=== PATIENT | male | born 1970 | race Two or more races ===

== ENCOUNTER 2018-05-08 23:00 | Inpatient (IN) | payer SELFPAY ==
[~2018-05-08] VITALS: Ht 170.2 cm; Wt 87.2 kg
[2018-05-08 23:30] LABS: Basophils # (auto) 0 uL; Basophils % (auto) 0.2 % (0.0-2.0); Eosinophils # (auto) 0 uL; Eosinophils % (auto) 0.1 % (0.0-7.0); Hematocrit 41.9 % (41.0-53.0); Hemoglobin 14.6 g/dL (13.5-17.5); Lymphocytes # (auto) 0.5 uL; Lymphocytes % (auto) 4.8 % (10.0-50.0); Mean Corpuscular Hemoglobin 29.2 pg (28.0-32.0); Mean Corpuscular Hgb Conc. 34.7 g/dL (32.0-36.0); Mean Corpuscular Volume 84.1 fL (80.0-100.0); Monocytes # (auto) 0.4 uL; Monocytes % (auto) 4.6 % (0.0-12.0); Neutrophils # (auto) 8.6 uL; Neutrophils % (auto) 90.3 % (37.0-80.0); Nucleated Red Blood Cells % 0.1 %; Platelet Count (auto) 153 10^3/uL (140-450); Red Blood Cells 4.98 10^6/uL (4.5-5.90); White Blood Cell 9.6 10^3/uL (4.4-10.8)
[2018-05-08] MEDS ORDERED: ACETAMINOPHEN 500 MG TAB PO ONE (23:30)
[2018-05-08] MEDS ORDERED: SODIUM CHLORIDE 0.9% 1,000 ML IV ONE (23:30)
[2018-05-08] MEDS ORDERED: ONDANSETRON HCL 4 MG/2 ML VIAL IV ONE ×2 (23:30→23:45)
[2018-05-08 23:45] LABS: INR 1.03 (0.9-1.15); Partial Thromboplastin Time 25.9 sec (23.78-33.04)
[2018-05-08] MEDS ORDERED: AZITHROMYCIN 500MG/ 250ML 250 ML IV ONE (23:45)
[2018-05-08 23:47] LABS: Anion Gap 10 (5-15); Calcium 8.1 mg/dL (8.5-10.1); Carbon Dioxide 21 mmol/L (21-32); Chloride 109 mmol/L (98-107); Glucose 167 mg/dL (74-106); Magnesium 1.8 mg/dL (1.6-2.6); Potassium 3.5 mmol/L (3.5-5.1); Sodium 140 mmol/L (136-145)
[2018-05-08 23:50] LABS: Amylase 22 U/L (25-115); Lipase 115 U/L (73-393)
[2018-05-08 23:52] LABS: Alkaline Phosphatase 139 U/L (45-117); Aspartate Aminotransferase 40 U/L (15-37); BUN/Creatinine Ratio 12.8; Bilirubin, Total 2.4 mg/dL (0.2-1.0); Blood Urea Nitrogen 17 mg/dL (7-18); GFR African American 74 mL/min; GFR Non-African American 61 mL/min; Total Protein 6.8 g/dL (6.4-8.2)
[2018-05-09] LABS: Alanine Aminotransferase 56 U/L (16-61)
[2018-05-09 00:07] LABS: Lactic Acid w/Reflex 3.3 mmol/L (0.4-2.0)
[2018-05-09 00:38] LABS: Urine Bacteria MANY /hpf (None Seen); Urine Blood 2+ /uL (Negative); Urine Mucus FEW (None Seen); Urine Specific Gravity 1.015 (1.001-1.035); Urine WBC 790 /hpf (0 - 3); Urine WBC Clumps PRESENT /hpf (None Seen)
[2018-05-09] MEDS ORDERED: SODIUM CHLORIDE 0.9% 1,000 ML IV ONE ×2 (02:00→05:00)
[2018-05-09] MEDS ORDERED: LORazepam 2MG/ML-1ML VIAL IV ONE (05:00)
[2018-05-09] MEDS ORDERED: cefTRIAXone 1GM/50ML D5W 50 ML IV ONE (05:00)
[2018-05-09] MEDS ORDERED: HYDROcodone-ACET 5/325MG TAB PO PRN (05:15)
[2018-05-09] MEDS ORDERED: ONDANSETRON HCL 4 MG/2 ML VIAL IV PRN (05:15)
[2018-05-09 05:40] LABS: Alcohol, Urine < 3.0 mg/dL (0-5); Amphetamine Screen, Urine NEGATIVE (NEGATIVE); Barbiturate Scree,Urine NEGATIVE (NEGATIVE); Benzodiazephine Screen, Urine NEGATIVE (NEGATIVE); Cannabinoid Screen, Urine NEGATIVE (NEGATIVE); Cocaine Screen, Urine NEGATIVE (NEGATIVE); Opiate Scree,Urine NEGATIVE (NEGATIVE); Phencyclidine Screen, Urine NEGATIVE (NEGATIVE)
[2018-05-09] MEDS ORDERED: IBUPROFEN 600 MG TAB PO ONE (05:45)
[2018-05-09] MEDS ORDERED: VANCOMYCIN PER PHARMACY 0 MG IV SCH (05:45)
[2018-05-09] MEDS: SODIUM CHLORIDE 0.9% 1,000 ML IV SCH ×2 (06:27→15:15)
[2018-05-09 06:40] VITALS: BP 99/65
[2018-05-09] MEDS ORDERED: VANCOMYCIN 1GM/250ML 250 ML IV ONE (07:00)
[2018-05-09 10:35] VITALS: BP 99/65
[2018-05-09] MEDS ORDERED: DEXTROSE (50%) 50ML SYRG IV PRN (12:15)
[2018-05-09 13:21] VITALS: BP 100/69
[2018-05-09] MEDS: ACCU-CHEK COMFORT CURVE STRIP VI SCH ×2 (17:00→21:13)
[2018-05-09] MEDS: InsuLIN REG 1unit/0.01ml Soln (100units/ml) SC SCH ×2 (17:00→21:13)
[2018-05-09 17:22] VITALS: BP 112/71
[2018-05-09] MEDS: Glucerna Carbsteady SHAKE Vanilla 8oz PO SCH (18:00)
[2018-05-09] MEDS: VANCOMYCIN 1GM/250ML 250 ML IV SCH (19:00)
[2018-05-09] MEDS: ACETAMINOPHEN 500 MG TAB PO PRN (21:14)
[2018-05-09 22:00] VITALS: BP 124/75
[2018-05-10] MEDS: SODIUM CHLORIDE 0.9% 1,000 ML IV SCH ×3 (02:08→22:50)
[2018-05-10] MEDS: ACETAMINOPHEN 500 MG TAB PO PRN ×3 (03:37→19:15)
[2018-05-10 05:00] VITALS: BP 123/70
[2018-05-10] MEDS: cefTRIAXone 1GM/50ML D5W 50 ML IV SCH (05:04)
[2018-05-10 06:01] LABS: Basophils # (auto) 0 uL; Basophils % (auto) 0.3 % (0.0-2.0); Eosinophils # (auto) 0 uL; Eosinophils % (auto) 0.6 % (0.0-7.0); Hematocrit 37.6 % (41.0-53.0); Lymphocytes # (auto) 0.6 uL; Lymphocytes % (auto) 7.5 % (10.0-50.0); Mean Corpuscular Hemoglobin 29.1 pg (28.0-32.0); Mean Corpuscular Hgb Conc. 34.5 g/dL (32.0-36.0); Mean Corpuscular Volume 84.2 fL (80.0-100.0); Monocytes % (auto) 11.7 % (0.0-12.0); Neutrophils # (auto) 6.7 uL; Neutrophils % (auto) 79.9 % (37.0-80.0); Platelet Count (auto) 149 10^3/uL (140-450); Red Blood Cells 4.46 10^6/uL (4.5-5.90); Red Cell Distribution Width 14.4 % (11.8-14.3); White Blood Cell 8.4 10^3/uL (4.4-10.8)
[2018-05-10 06:13] LABS: BUN/Creatinine Ratio 14.3; Potassium 3.4 mmol/L (3.5-5.1)
[2018-05-10] MEDS: VANCOMYCIN 1GM/250ML 250 ML IV SCH ×2 (06:47→20:30)
[2018-05-10] MEDS: ACCU-CHEK COMFORT CURVE STRIP VI SCH ×4 (06:48→22:14)
[2018-05-10] MEDS: InsuLIN REG 1unit/0.01ml Soln (100units/ml) SC SCH ×4 (06:48→22:14)
[2018-05-10] MEDS: Glucerna Carbsteady SHAKE Vanilla 8oz PO SCH ×3 (08:00→18:00)
[2018-05-10 09:00] VITALS: BP 130/80
[2018-05-10] MEDS ORDERED: POTASSIUM CHLORIDE 8 MEQ TAB PO ONE (10:30)
[2018-05-10 13:00] VITALS: BP 146/90
[2018-05-10 17:00] VITALS: BP 119/77
[2018-05-10 22:00] VITALS: BP_SYST 114; BP_SYST 127; BP_DIAS 71; BP_DIAS 72
[2018-05-11] MEDS: ACETAMINOPHEN 500 MG TAB PO PRN (04:28)
[2018-05-11 05:00] VITALS: BP_SYST 106; BP_SYST 129; BP_DIAS 64; BP_DIAS 72
[2018-05-11] MEDS: cefTRIAXone 1GM/50ML D5W 50 ML IV SCH (05:44)
[2018-05-11] MEDS: VANCOMYCIN 1GM/250ML 250 ML IV SCH (06:22)
[2018-05-11] MEDS: ACCU-CHEK COMFORT CURVE STRIP VI SCH (06:22)
[2018-05-11 06:34] LABS: Calcium 8.1 mg/dL (8.5-10.1); Potassium 3.1 mmol/L (3.5-5.1)
[2018-05-11 06:37] LABS: BUN/Creatinine Ratio 11.9
[2018-05-11] MEDS: InsuLIN REG 1unit/0.01ml Soln (100units/ml) SC SCH (06:37)
[2018-05-11 06:43] LABS: Basophils # (auto) 0 uL; Basophils % (auto) 0.3 % (0.0-2.0); Eosinophils # (auto) 0 uL; Eosinophils % (auto) 0.2 % (0.0-7.0); Lymphocytes # (auto) 0.5 uL; Lymphocytes % (auto) 10.8 % (10.0-50.0); Mean Corpuscular Hemoglobin 28.6 pg (28.0-32.0); Mean Corpuscular Hgb Conc. 34.1 g/dL (32.0-36.0); Mean Corpuscular Volume 83.9 fL (80.0-100.0); Monocytes # (auto) 0.8 uL; Monocytes % (auto) 15.8 % (0.0-12.0); Neutrophils # (auto) 3.7 uL; Neutrophils % (auto) 72.9 % (37.0-80.0); Platelet Count (auto) 150 10^3/uL (140-450); Red Blood Cells 4.53 10^6/uL (4.5-5.90); Red Cell Distribution Width 14.3 % (11.8-14.3); White Blood Cell 5.1 10^3/uL (4.4-10.8)
[2018-05-11] MEDS: SODIUM CHLORIDE 0.9% 1,000 ML IV SCH ×2 (07:15→17:15)
[2018-05-11] MEDS: Glucerna Carbsteady SHAKE Vanilla 8oz PO SCH ×3 (08:00→18:00)
[2018-05-11 08:30] VITALS: BP 115/78
[2018-05-11] MEDS ORDERED: VANCOMYCIN 1GM/250ML 250 ML IV SCH ×2 (09:30→14:00)
[2018-05-11] MEDS ORDERED: MEROPENEM 1GM IVPB 100 ML IV SCH (10:00)
[2018-05-11 12:30] VITALS: BP 128/86
[2018-05-11] MEDS ORDERED: POTASSIUM EFFERVESENT TAB 25 MEQ PO ONE (16:15)
[2018-05-11 17:02] VITALS: BP 130/89
== END 2018-05-11 19:34 | disposition home or self-care (01) | DRG 872 ==
LOC: ER 23:00 → OVERFLOW 05-09 05:05 → CENTRAL 05-09 06:40
PROVIDERS: ADMIT Nurse Practitioner Family; ATTEND Internal Medicine
DX: A41.9 Sepsis, unspecified organism (principal); J98.11 Atelectasis; N10 Acute pyelonephritis; E44.0 Moderate protein-calorie malnutrition; E11.65 Type 2 diabetes mellitus with hyperglycemia; E11.21 Type 2 diabetes mellitus with diabetic nephropathy; N18.2 Chronic kidney disease, stage 2 (mild); B96.89 Other specified bacterial agents as the cause of diseases classified elsewhere; R16.2 Hepatomegaly with splenomegaly, not elsewhere classified; Z83.3 Family history of diabetes mellitus; Z68.30 Body mass index [BMI] 30.0-30.9, adult
CPT/HCPCS: 36415; 71046; 74176; 80048; 80053; 80202; 80307; 81001; 82150; 82962; 83036; 83605; 83690; 83735; 84484; 85025; 85610; 85730; 87040; 87077; 87086; 87088; 87186; 94761; 96361; 96365; 96366; 96375; 99291; G0378; J0696; J1815; J2185; J2405

== ENCOUNTER 2020-01-31 10:07 | Inpatient (IN) | payer MEDICAID, OTHER ==
[~2020-01-31] VITALS: Ht 175.3 cm; Wt 97.5 kg
[2020-01-31] MEDS ORDERED: SODIUM CHLORIDE 0.9% 1,000 ML IV ONE ×2 (10:08)
[2020-01-31] MEDS ORDERED: ACETAMINOPHEN 500 MG TAB PO ONE (10:15)
[2020-01-31] MEDS ORDERED: cefTRIAXone 1GM/50ML D5W 50 ML IV ONE (10:15)
[2020-01-31 10:46] LABS: Basophils # (auto) 0 10 ^3/uL (0-0.2); Basophils % (auto) 0.1 % (0.0-2.0); Eosinophils # (auto) 0 10 ^3/uL (0-0.8); Hematocrit 46.3 % (41.0-53.0); Hemoglobin 15.8 g/dL (13.5-17.5); Lymphocytes # (auto) 0.7 10 ^3/uL (0.4-5.4); Lymphocytes % (auto) 7.9 % (10.0-50.0); Mean Corpuscular Hemoglobin 28.3 pg (28.0-32.0); Mean Corpuscular Volume 83.3 fL (80.0-100.0); Monocytes # (auto) 0.6 10 ^3/uL (0-1.3); Monocytes % (auto) 6.7 % (0.0-12.0); Neutrophils # (auto) 7.3 10 ^3/uL (1.6-8.6); Neutrophils % (auto) 85.3 % (37.0-80.0); Nucleated Red Blood Cells % 0.6 %; Platelet Count (auto) 199 10^3/uL (140-450); Red Blood Cells 5.56 10^6/uL (4.5-5.90); Red Cell Distribution Width 14.1 % (11.8-14.3); White Blood Cell 8.5 10^3/uL (4.4-10.8)
[2020-01-31 11:13] LABS: Albumin 3.1 g/dL (3.4-5.0); Anion Gap 8 (5-15); Blood Urea Nitrogen 13 mg/dL (7-18); Calcium 8.6 mg/dL (8.5-10.1); Carbon Dioxide 22 mmol/L (21-32); Chloride 105 mmol/L (98-107); Glucose 226 mg/dL (74-106); Potassium 3.9 mmol/L (3.5-5.1); Sodium 135 mmol/L (136-145)
[2020-01-31 11:22] LABS: Alanine Aminotransferase 98 U/L (16-61); Alkaline Phosphatase 102 U/L (45-117); Aspartate Aminotransferase 47 U/L (15-37); BUN/Creatinine Ratio 12.7; Bilirubin, Total 0.6 mg/dL (0.2-1.0); CRP High Sensitivity 8.97 mg/dL (< 0.3); GFR African American 100 mL/min; GFR Non-African American 83 mL/min; Lactate Dehydrogenase 280 U/L (87-241); Total Protein 7.3 g/dL (6.4-8.2)
[2020-01-31] MEDS ORDERED: SODIUM CHLORIDE 0.9% 1,000 ML IV SCH (12:48)
[2020-01-31] MEDS ORDERED: NITROGLYCERIN 0.4 MG SL TAB SL PRN (13:00)
[2020-01-31] MEDS ORDERED: DOCUSATE SOD 100 MG CAP PO PRN (13:00)
[2020-01-31] MEDS ORDERED: HYDROcodone-ACET 5/325MG TAB PO PRN (13:00)
[2020-01-31] MEDS ORDERED: LORazepam 0.5 MG TAB PO PRN (13:00)
[2020-01-31] MEDS ORDERED: ALUM & MAG HYDROX-SIMETH LIQ(MAALOX) 30 ML PO PRN (13:00)
[2020-01-31] MEDS ORDERED: ONDANSETRON HCL 4 MG/2 ML VIAL IV PRN (13:00)
[2020-01-31] MEDS ORDERED: ACETAMINOPHEN 500 MG TAB PO PRN (13:00)
[2020-01-31] MEDS ORDERED: MORPHINE SULF INJ 2 MG/ML SYRINGE 1ML IV PRN ×2 (13:00)
[2020-01-31] MEDS ORDERED: ASCORBIC ACID 1,000 MG TAB PO ONE (13:15)
[2020-01-31] MEDS ORDERED: ENOXAPARIN SOD 40 MG/0.4 ML SYRINGE SC ONE (13:15)
[2020-01-31] MEDS ORDERED: DexAMETHasone SOD PHOS 10MG/1ML VIAL INJ IV ONE (13:15)
[2020-01-31] MEDS ORDERED: CHOLECALCIFEROL (VITD3) 2,000 UNIT CAP PO ONE (13:15)
[2020-01-31] MEDS ORDERED: ZINC SULFATE 220mg CAP or TAB PO ONE (13:15)
[2020-01-31 15:05] VITALS: BP 131/85
[2020-01-31 16:15] VITALS: BP 130/85
[2020-01-31 17:00] VITALS: BP 130/85
[2020-01-31 19:02] LABS: Cholesterol 111 mg/dL (< 200); HDL Cholesterol 22 mg/dL (40-59); LDL Cholesterol 64 mg/dL (< 100); Triglycerides 195 mg/dL (< 150)
[2020-01-31 20:00] VITALS: BP 122/84
[2020-01-31 21:00] VITALS: BP 122/84
[2020-01-31] MEDS: DOXYCYCLINE 100MG/250ML 250 ML IV SCH (21:39)
[2020-02-01 05:00] VITALS: BP 119/88
[2020-02-01 05:50] LABS: Basophils # (auto) 0 10 ^3/uL (0-0.2); Basophils % (auto) 0.1 % (0.0-2.0); Eosinophils # (auto) 0 10 ^3/uL (0-0.8); Hematocrit 43.8 % (41.0-53.0); Lymphocytes # (auto) 0.6 10 ^3/uL (0.4-5.4); Lymphocytes % (auto) 9.5 % (10.0-50.0); Mean Corpuscular Hgb Conc. 34.3 g/dL (32.0-36.0); Mean Corpuscular Volume 84.5 fL (80.0-100.0); Monocytes # (auto) 0.6 10 ^3/uL (0-1.3); Monocytes % (auto) 9.1 % (0.0-12.0); Neutrophils # (auto) 5.1 10 ^3/uL (1.6-8.6); Neutrophils % (auto) 81.3 % (37.0-80.0); Platelet Count (auto) 218 10^3/uL (140-450); Red Blood Cells 5.18 10^6/uL (4.5-5.90); Red Cell Distribution Width 14.1 % (11.8-14.3); White Blood Cell 6.3 10^3/uL (4.4-10.8)
[2020-02-01 06:01] LABS: Albumin 2.8 g/dL (3.4-5.0); Calcium 8.7 mg/dL (8.5-10.1); Potassium 4.1 mmol/L (3.5-5.1)
[2020-02-01 06:06] LABS: BUN/Creatinine Ratio 19.5; Bilirubin, Total 0.3 mg/dL (0.2-1.0); Total Protein 6.7 g/dL (6.4-8.2)
[2020-02-01] MEDS: ALBUTEROL SULF HFA 90MCG INH 200DOSE IN SCH ×4 (07:00→22:00)
[2020-02-01] MEDS: BUDESONIDE (INHALATION) 180 MCG IH IN SCH ×2 (07:00→22:00)
[2020-02-01 08:23] VITALS: BP 139/94
[2020-02-01] MEDS: DexAMETHasone SOD PHOS 10MG/1ML VIAL INJ IV SCH (10:21)
[2020-02-01] MEDS: DOXYCYCLINE 100MG/250ML 250 ML IV SCH ×2 (10:22→21:11)
[2020-02-01] MEDS: ZINC SULFATE 220mg CAP or TAB PO SCH (10:22)
[2020-02-01] MEDS: ASCORBIC ACID 1,000 MG TAB PO SCH (10:22)
[2020-02-01] MEDS: CHOLECALCIFEROL (VITD3) 2,000 UNIT CAP PO SCH (10:23)
[2020-02-01] MEDS: ENOXAPARIN SOD 40 MG/0.4 ML SYRINGE SC SCH (10:25)
[2020-02-01 12:05] VITALS: BP 132/92
[2020-02-01] MEDS ORDERED: POTASSIUM CHL 10 Meq TABLET PO ONE (14:00)
[2020-02-01] MEDS ORDERED: FUROSEMIDE 40 MG TAB PO ONE (14:00)
[2020-02-01] MEDS ORDERED: DEXTROSE (50%) 50ML SYRG IV PRN (14:15)
[2020-02-01] MEDS ORDERED: guaiFENesin-DM 100/10mg/5ml SYR PO PRN (14:30)
[2020-02-01 16:53] VITALS: BP 123/93
[2020-02-01] MEDS: ACCU-CHEK COMFORT CURVE STRIP VI SCH ×2 (16:59→21:11)
[2020-02-01] MEDS: InsuLIN REG 1unit/0.01ml Soln (100units/ml) SC SCH (17:03)
[2020-02-01 20:00] VITALS: BP 134/95
[2020-02-01 22:00] VITALS: BP 134/95
[2020-02-01] MEDS ORDERED: InsuLIN REG 1unit/0.01ml Soln (100units/ml) SC SCH (22:00)
[2020-02-02 05:00] VITALS: BP 115/77
[2020-02-02] MEDS: ACCU-CHEK COMFORT CURVE STRIP VI SCH ×2 (06:02→11:49)
[2020-02-02] MEDS: InsuLIN REG 1unit/0.01ml Soln (100units/ml) SC SCH ×2 (06:02→12:04)
[2020-02-02] MEDS: ALBUTEROL SULF HFA 90MCG INH 200DOSE IN SCH ×2 (06:44→14:40)
[2020-02-02] MEDS: BUDESONIDE (INHALATION) 180 MCG IH IN SCH (06:46)
[2020-02-02 08:00] VITALS: BP 123/93
[2020-02-02 08:26] VITALS: BP 128/89
[2020-02-02] MEDS: DexAMETHasone SOD PHOS 10MG/1ML VIAL INJ IV SCH (10:36)
[2020-02-02] MEDS: DOXYCYCLINE 100MG/250ML 250 ML IV SCH (10:36)
[2020-02-02] MEDS: ZINC SULFATE 220mg CAP or TAB PO SCH (10:36)
[2020-02-02] MEDS: ENOXAPARIN SOD 40 MG/0.4 ML SYRINGE SC SCH (10:37)
[2020-02-02] MEDS: CHOLECALCIFEROL (VITD3) 2,000 UNIT CAP PO SCH (10:37)
[2020-02-02] MEDS: ASCORBIC ACID 1,000 MG TAB PO SCH (10:37)
[2020-02-02] MEDS ORDERED: DEXT1SYP9 PO (12:13)
[2020-02-02] MEDS ORDERED: METH4PAK PO (12:13)
[2020-02-02] MEDS ORDERED: CHOL1CAP47 PO (12:13)
[2020-02-02] MEDS ORDERED: ASCO10003 PO (12:13)
[2020-02-02] MEDS ORDERED: AZITTAB PO (12:13)
[2020-02-02] MEDS ORDERED: ALBUAER3 IN (12:13)
[2020-02-02 13:18] VITALS: BP 132/93
[2020-02-02 15:48] VITALS: BP 123/93
== END 2020-02-02 17:00 | disposition home or self-care (01) | DRG 720 ==
LOC: ER 10:07 → TELE 10:08 → TELE-E-ADS 16:22 → EAST 02-01 15:13
PROVIDERS: ADMIT Hospitalist; ATTEND Hospitalist
DX: A41.89 Other specified sepsis (principal); U07.1 COVID-19; E66.9 Obesity, unspecified; E11.8 Type 2 diabetes mellitus with unspecified complications; E44.0 Moderate protein-calorie malnutrition; E78.5 Hyperlipidemia, unspecified; J12.89 Other viral pneumonia; J98.11 Atelectasis; N17.0 Acute kidney failure with tubular necrosis; Z83.3 Family history of diabetes mellitus; Z68.30 Body mass index [BMI] 30.0-30.9, adult
CPT/HCPCS: 36415; 71045; 80053; 80061; 82728; 82962; 83036; 83605; 83615; 83735; 84443; 84484; 85025; 85379; 86141; 87426; 96361; 96365; 96372; 96375; 99291; G0378; J0696; J1100; J1815; J3490

== ENCOUNTER 2023-10-26 17:04 | Emergency (ER) | payer MEDICAID ==
[~2023-10-26] VITALS: Ht 172.7 cm; Wt 81.0 kg
[~2023-10-26 17:04] MED LIST: ALBUAER3 IN; ASCO10003 PO; AZITTAB PO; CHOL1CAP47 PO; DEXT1SYP9 PO; METH4PAK PO
[2023-10-26 17:13] VITALS: TEMP 98.1
[2023-10-26 17:23] VITALS: BP 113/86; PULSE 100; RESP 18; O2SAT 99
== END 2023-10-26 17:45 | disposition left against medical advice (07) ==
LOC: ER 17:04
DX: E11.9 Type 2 diabetes mellitus without complications (principal); Z53.21 Procedure and treatment not carried out due to patient leaving prior to being seen by health care provider
CPT/HCPCS: 82962

== ENCOUNTER 2023-10-28 19:11 | Inpatient (IN) | payer MEDICAID ==
[~2023-10-28] VITALS: Ht 175.3 cm; Wt 78.8 kg
[2023-10-28 20:29] LABS: Urine Bacteria None Seen /hpf (None Seen)
[2023-10-28 20:43] LABS: Urine Blood Negative /uL (Negative); Urine Clarity Clear (Clear); Urine Color Light-Yellow (Yellow); Urine Protein, UAD Negative (Negative); Urine Specific Gravity 1.012 (1.001-1.035); Urine Urobilinogen Normal (Negative); Urine WBC <1 /hpf (0 - 3); Urine pH 5.5 (5.0-9.0)
[2023-10-28 20:49] LABS: Basophils # (auto) 0.1 10 ^3/uL (0-0.2); Basophils % (auto) 0.8 % (0.0-2.0); Eosinophils # (auto) 0.1 10 ^3/uL (0-0.8); Monocytes # (auto) 0.7 10 ^3/uL (0-1.3)
[2023-10-28 20:50] LABS: Eosinophils % (auto) 0.6 % (0.0-7.0); Lymphocytes % (auto) 17.5 % (10.0-50.0); Mean Corpuscular Hemoglobin 29.4 pg (28.0-32.0); Monocytes % (auto) 6.3 % (0.0-12.0); Neutrophils # (auto) 8.5 10 ^3/uL (1.6-8.6); Neutrophils % (auto) 74.8 % (37.0-80.0); Nucleated Red Blood Cells % 1.1 %; Red Blood Cells 2.25 10^6/uL (4.5-5.90); Red Cell Distribution Width 15.3 % (11.8-14.3); White Blood Cell 11.3 10^3/uL (4.4-10.8)
[2023-10-28 20:53] LABS: Hemoglobin 6.6 g/dL (13.5-17.5)
[2023-10-28 21:06] LABS: Alanine Aminotransferase 26 U/L (7-40); Albumin 3.7 g/dL (3.2-4.8); Alkaline Phosphatase 69 U/L (46-116); Anion Gap 5 (5-15); Aspartate Aminotransferase 12 U/L (13-40); Bilirubin, Total 0.5 mg/dL (0.2-1.0); Blood Urea Nitrogen 16 mg/dL (9-23); Calcium 9.6 mg/dL (8.7-10.4); Carbon Dioxide 27 mmol/L (20-30); Chloride 108 mmol/L (98-107); Glucose 238 mg/dL (74-106); Magnesium 1.8 mg/dL (1.6-2.6); Potassium 3.4 mmol/L (3.5-5.1); Sodium 140 mmol/L (136-145); Total Protein 5.5 g/dL (5.7-8.2)
[2023-10-28 21:11] LABS: INR 1.04 (0.9-1.15); Partial Thromboplastin Time 20.9 SEC (24.5-34.5)
[2023-10-28] MEDS: PANTOPRAZOLE 40 MG/10 ML VIAL INJ IV ONE (21:48)
[2023-10-28] MEDS: diphenhdrAMINE HCL 25 MG CAP PO ONE (21:49)
[2023-10-28] MEDS: SODIUM CHLORIDE 0.9% 1,000 ML IV ONE (21:50)
[2023-10-28] MEDS: ACETAMINOPHEN 500 MG TAB PO ONE (21:50)
[2023-10-28 22:08] LABS: Platelet Estimate Adequate
[2023-10-28 22:09] LABS: Macrocytosis Slight
[2023-10-28 22:18] LABS: % Iron Saturation 25.3 % (20-55)
[2023-10-28 22:23] LABS: Blood Alcohol < 3.0 mg/dL (<10)
[2023-10-28 22:24] LABS: Ferritin 33.7 ng/mL (22-322); Folate (Folic Acid) 12.72 ng/mL (>5.38)
[2023-10-28 22:38] LABS: Lipase 50 U/L (12-53)
[2023-10-28] MEDS ORDERED: MORPHINE SULFATE INJ 2 MG/ml SYRG IV PRN (23:15)
[2023-10-28] MEDS ORDERED: ONDANSETRON HCL 4 MG/2 ML VIAL IV PRN (23:15)
[2023-10-28] MEDS ORDERED: PANTOPRAZOLE 40mg/50ML NS AE 50 ML IV SCH (23:15)
[2023-10-28] MEDS ORDERED: NITROGLYCERIN 0.4 MG SL TAB SL PRN (23:15)
[2023-10-28] MEDS ORDERED: DEXTROSE (50%) 50ML SYRG IV PRN (23:15)
[2023-10-28 23:17] VITALS: PULSE 88; RESP 16; O2SAT 100
[2023-10-28] MEDS: PANTOPRAZOLE 40mg/50ML NS AE 50 ML IV ONE (23:24)
[2023-10-28] MEDS: SODIUM CHLORIDE 0.9% 1,000 ML IV SCH (23:27)
[2023-10-28 23:41] LABS: Urine Bacteria None Seen /hpf (None Seen); Urine WBC None Seen /hpf (0 - 3)
[2023-10-28] MEDS: ACCU-CHEK COMFORT CURVE STRIP VI SCH (23:46)
[2023-10-28] MEDS: InsuLIN REG 1unit/0.01ml Soln (100units/ml) SC SCH (23:49)
[2023-10-28 23:59] LABS: Urine Blood Negative /uL (Negative); Urine Clarity Clear (Clear); Urine Color Colorless (Yellow); Urine Protein, UAD Negative (Negative); Urine Specific Gravity 1.012 (1.001-1.035); Urine Urobilinogen Normal (Negative); Urine pH 5.5 (5.0-9.0)
[2023-10-29] VITALS (25 sets, daily range): BP systolic 100–130; BP diastolic 62–89; PULSE 64–92; RESP 10–21; TEMP 97.8–99.1; O2SAT 96–100
[2023-10-29] LABS: Amphetamine Screen, Urine Neg (NEGATIVE); Barbiturate Scree,Urine Neg (NEGATIVE); Benzodiazephine Screen, Urine Neg (NEGATIVE); Cannabinoid Screen, Urine Neg (NEGATIVE); Cocaine Screen, Urine Neg (NEGATIVE); Opiate Scree,Urine Neg (NEGATIVE); Phencyclidine Screen, Urine Neg (NEGATIVE)
[2023-10-29 08:26] LABS: Basophils # (auto) 0.1 10 ^3/uL (0-0.2); Eosinophils # (auto) 0.1 10 ^3/uL (0-0.8); Hemoglobin 7.7 g/dL (13.5-17.5); Nucleated Red Blood Cells % 0.2 %; White Blood Cell 7.6 10^3/uL (4.4-10.8)
[2023-10-29 08:31] LABS: Basophils % (auto) 0.7 % (0.0-2.0); Eosinophils % (auto) 1.6 % (0.0-7.0); Hematocrit 22.5 % (41.0-53.0); Lymphocytes # (auto) 1.7 10 ^3/uL (0.4-5.4); Lymphocytes % (auto) 22.6 % (10.0-50.0); Mean Corpuscular Hemoglobin 30.9 pg (28.0-32.0); Mean Corpuscular Hgb Conc. 34.4 g/dL (32.0-36.0); Mean Corpuscular Volume 89.9 fL (80.0-100.0); Monocytes # (auto) 0.5 10 ^3/uL (0-1.3); Monocytes % (auto) 7.2 % (0.0-12.0); Neutrophils # (auto) 5.2 10 ^3/uL (1.6-8.6); Neutrophils % (auto) 67.9 % (37.0-80.0)
[2023-10-29 08:51] LABS: Alanine Aminotransferase 23 U/L (7-40); Albumin 3.2 g/dL (3.2-4.8); Alkaline Phosphatase 58 U/L (46-116); Anion Gap 4 (5-15); Aspartate Aminotransferase 12 U/L (13-40); BUN/Creatinine Ratio 10.5 (10.0-20.0); Bilirubin, Total 0.5 mg/dL (0.2-1.0); Blood Urea Nitrogen 8 mg/dL (9-23); Calcium 8.5 mg/dL (8.5-10.1); Carbon Dioxide 25 mmol/L (20-30); Chloride 114 mmol/L (98-107); Glucose 161 mg/dL (74-106); Potassium 3.7 mmol/L (3.5-5.1); Sodium 143 mmol/L (136-145); Total Protein 4.6 g/dL (5.7-8.2)
[2023-10-29 11:04] LABS: Magnesium 1.8 mg/dL (1.6-2.6)
[2023-10-29] MEDS: CYANOCOBALAMIN (B-12) 1000 MCG/1 ML VIAL IM ONE (12:24)
[2023-10-29] MEDS ORDERED: KETAMINE 50mg/ML 1ml syringe ONE (12:53)
[2023-10-29] MEDS ORDERED: fentaNYL CITRATE 100 MCG/2 ML VL ONE (12:53)
[2023-10-29] MEDS ORDERED: MIDAZOLAM HCL 2MG/2ML 2ml VIAL (1mg/ml) ONE (12:54)
[2023-10-29] MEDS ORDERED: PROPOFOL 10 MG/ML 20 ML IV ONE ×3 (12:54→13:50)
[2023-10-29] MEDS ORDERED: SODIUM CHLORIDE LOCK 10 ML ONE (12:54)
[2023-10-29] MEDS ORDERED: LIDOCAINE 2% (LOCAL ANESTH.) PF 5ml SDV ONE (13:00)
[2023-10-29] MEDS: EPINEPHrine HCL 1 MG/10 ML SYRG ONE (14:01)
[2023-10-29 17:18] LABS: Hematocrit 25.6 % (41.0-53.0); Hemoglobin 8.6 g/dL (13.5-17.5)
[2023-10-29] MEDS: PANTOPRAZOLE 40mg/50ML NS AE 50 ML IV SCH (18:35)
[2023-10-29] MEDS: PANTOPRAZOLE 40 MG/10 ML VIAL INJ IV SCH (21:38)
[2023-10-29] MEDS: SUCRALFATE 1 GM TAB PO SCH (21:39)
[2023-10-29 21:59] LABS: Hematocrit 25.5 % (41.0-53.0); Hemoglobin 8.6 g/dL (13.5-17.5)
[2023-10-30] VITALS (9 sets, daily range): BP systolic 108–121; BP diastolic 69–81; PULSE 58–95; RESP 11–17; TEMP 96.6–98.8; O2SAT 96–100
[2023-10-30 05:14] LABS: Basophils # (auto) 0.1 10 ^3/uL (0-0.2); Basophils % (auto) 0.8 % (0.0-2.0); Eosinophils # (auto) 0.2 10 ^3/uL (0-0.8); Eosinophils % (auto) 2.9 % (0.0-7.0); Hematocrit 27.5 % (41.0-53.0); Hemoglobin 9.1 g/dL (13.5-17.5); Lymphocytes # (auto) 1.6 10 ^3/uL (0.4-5.4); Lymphocytes % (auto) 20.8 % (10.0-50.0); Mean Corpuscular Hgb Conc. 33.1 g/dL (32.0-36.0); Mean Corpuscular Volume 90.4 fL (80.0-100.0); Monocytes # (auto) 0.5 10 ^3/uL (0-1.3); Monocytes % (auto) 6.9 % (0.0-12.0); Neutrophils # (auto) 5.1 10 ^3/uL (1.6-8.6); Neutrophils % (auto) 68.6 % (37.0-80.0); Nucleated Red Blood Cells % 0.2 %; Red Blood Cells 3.04 10^6/uL (4.5-5.90); Red Cell Distribution Width 15.7 % (11.8-14.3); White Blood Cell 7.5 10^3/uL (4.4-10.8)
[2023-10-30 05:29] LABS: Alanine Aminotransferase 36 U/L (7-40); Albumin 3.6 g/dL (3.2-4.8); Alkaline Phosphatase 60 U/L (46-116); Anion Gap 5 (5-15); Aspartate Aminotransferase 21 U/L (13-40); BUN/Creatinine Ratio 12.2 (10.0-20.0); Bilirubin, Total 0.8 mg/dL (0.2-1.0); Blood Urea Nitrogen 10 mg/dL (9-23); Calcium 9.1 mg/dL (8.7-10.4); Carbon Dioxide 28 mmol/L (20-30); Chloride 111 mmol/L (98-107); Glucose 140 mg/dL (74-106); Magnesium 1.9 mg/dL (1.6-2.6); Potassium 3.5 mmol/L (3.5-5.1); Sodium 144 mmol/L (136-145); Total Protein 5.3 g/dL (5.7-8.2)
[2023-10-30 08:44] LABS: Hepatitis B Surface Antibody Negative (Negative)
[2023-10-30 08:55] LABS: Hepatitis B Surface Antigen Negative (Negative)
[2023-10-30 09:18] LABS: Hepatitis C Antibody Negative (Negative)
[2023-10-31] VITALS (8 sets, daily range): BP systolic 101–153; BP diastolic 62–103; PULSE 56–104; RESP 12–18; TEMP 97.6–98.6; O2SAT 94–100
[2023-10-31 05:59] LABS: Basophils # (auto) 0 10 ^3/uL (0-0.2); Basophils % (auto) 0.6 % (0.0-2.0); Eosinophils # (auto) 0.1 10 ^3/uL (0-0.8); Eosinophils % (auto) 2.2 % (0.0-7.0); Hematocrit 26.9 % (41.0-53.0); Hemoglobin 9.1 g/dL (13.5-17.5); Lymphocytes # (auto) 1.1 10 ^3/uL (0.4-5.4); Lymphocytes % (auto) 17.8 % (10.0-50.0); Mean Corpuscular Hemoglobin 30.5 pg (28.0-32.0); Mean Corpuscular Hgb Conc. 33.9 g/dL (32.0-36.0); Mean Corpuscular Volume 89.8 fL (80.0-100.0); Monocytes # (auto) 0.5 10 ^3/uL (0-1.3); Monocytes % (auto) 7.7 % (0.0-12.0); Neutrophils # (auto) 4.6 10 ^3/uL (1.6-8.6); Neutrophils % (auto) 71.7 % (37.0-80.0); Nucleated Red Blood Cells % 0.2 %; Red Blood Cells 2.99 10^6/uL (4.5-5.90); Red Cell Distribution Width 15.7 % (11.8-14.3); White Blood Cell 6.4 10^3/uL (4.4-10.8)
[2023-10-31 06:21] LABS: Alanine Aminotransferase 47 U/L (7-40); Albumin 3.5 g/dL (3.2-4.8); Alkaline Phosphatase 65 U/L (46-116); Anion Gap 4 (5-15); Aspartate Aminotransferase 21 U/L (13-40); BUN/Creatinine Ratio 10.5 (10.0-20.0); Bilirubin, Total 0.9 mg/dL (0.2-1.0); Blood Urea Nitrogen 9 mg/dL (9-23); Calcium 8.8 mg/dL (8.5-10.1); Carbon Dioxide 28 mmol/L (20-30); Chloride 110 mmol/L (98-107); Glucose 138 mg/dL (74-106); Potassium 3.6 mmol/L (3.5-5.1); Sodium 142 mmol/L (136-145); Total Protein 5.1 g/dL (5.7-8.2)
[2023-10-31] MEDS ORDERED: DEXTROSE (50%) 50ML SYRG IV PRN (07:15)
[2023-10-31] MEDS: PANTOPRAZOLE 40 MG/10 ML VIAL INJ IV SCH (10:00)
[2023-10-31] MEDS: InsuLIN REG 1unit/0.01ml Soln (100units/ml) SC SCH (11:30)
[2023-10-31] MEDS: ACCU-CHEK COMFORT CURVE STRIP VI SCH (11:44)
[2023-11-01 01:00] VITALS: BP 116/79; PULSE 74; RESP 14; TEMP 98.2; O2SAT 100
[2023-11-01 05:00] VITALS: BP 113/76; PULSE 64; RESP 14; TEMP 98; O2SAT 97
[2023-11-01 06:02] LABS: Basophils # (auto) 0 10 ^3/uL (0-0.2); Basophils % (auto) 0.5 % (0.0-2.0); Eosinophils # (auto) 0.1 10 ^3/uL (0-0.8); Eosinophils % (auto) 2.6 % (0.0-7.0); Hemoglobin 9.1 g/dL (13.5-17.5); Lymphocytes # (auto) 1.3 10 ^3/uL (0.4-5.4); Lymphocytes % (auto) 23.2 % (10.0-50.0); Mean Corpuscular Hemoglobin 29.9 pg (28.0-32.0); Mean Corpuscular Hgb Conc. 33.7 g/dL (32.0-36.0); Mean Corpuscular Volume 88.8 fL (80.0-100.0); Monocytes # (auto) 0.5 10 ^3/uL (0-1.3); Monocytes % (auto) 8.6 % (0.0-12.0); Neutrophils # (auto) 3.7 10 ^3/uL (1.6-8.6); Neutrophils % (auto) 65.1 % (37.0-80.0); Red Blood Cells 3.04 10^6/uL (4.5-5.90); Red Cell Distribution Width 16.1 % (11.8-14.3); White Blood Cell 5.6 10^3/uL (4.4-10.8)
[2023-11-01 06:29] LABS: Alanine Aminotransferase 44 U/L (7-40); Alkaline Phosphatase 72 U/L (46-116); Anion Gap 5 (5-15); BUN/Creatinine Ratio 8.5 (10.0-20.0); Blood Urea Nitrogen 7 mg/dL (9-23); Carbon Dioxide 29 mmol/L (20-30); Chloride 109 mmol/L (98-107); Glucose 113 mg/dL (74-106); Potassium 3.6 mmol/L (3.5-5.1); Sodium 143 mmol/L (136-145)
[2023-11-01 06:31] LABS: Albumin 3.6 g/dL (3.2-4.8); Aspartate Aminotransferase 16 U/L (13-40); Bilirubin, Total 0.7 mg/dL (0.2-1.0); Total Protein 5.2 g/dL (5.7-8.2)
[2023-11-01 08:00] VITALS: PULSE 60
[2023-11-01 09:15] VITALS: BP 121/76; PULSE 82; RESP 18; TEMP 97.6; O2SAT 99
[2023-11-01] MEDS: CYANOCOBALAMIN 500 MCG TAB PO SCH (09:25)
[2023-11-01] MEDS ORDERED: SUCR1TAB PO (11:20)
[2023-11-01] MEDS ORDERED: PANT40TA2 PO (11:20)
[2023-11-01] MEDS ORDERED: CYAN500T3 PO (11:20)
[2023-11-01 12:53] VITALS: BP 125/88; PULSE 63; RESP 18; TEMP 98.2; O2SAT 99
[2023-11-01 15:07] VITALS: BP 121/76; PULSE 82; RESP 18; TEMP 36.8; O2SAT 99
[2023-11-01] MEDS ORDERED: LIDOCAINE 1% HCL (LOCAL ANESTH.) INJ 20ML MDV ONE (20:14)
== END 2023-11-01 16:35 | disposition home or self-care (01) | DRG 241 ==
LOC: ER 19:11 → TELE 23:09 → DOU IN ICU 10-29 15:07 → TELE-WESTW 10-31 18:30
PROVIDERS: ADMIT Internal Medicine; ATTEND Emergency Medicine
PROC: 0W3P8ZZ Control Bleeding in Gastrointestinal Tract, Via Natural or Artificial Opening Endoscopic (ICD-10-PCS; 2023-10-29)
PROC: 0DB68ZX Excision of Stomach, Via Natural or Artificial Opening Endoscopic, Diagnostic (ICD-10-PCS; 2023-10-29)
PROC: 3E0G8GC Introduction of Other Therapeutic Substance into Upper GI, Via Natural or Artificial Opening Endoscopic (ICD-10-PCS; 2023-10-29)
PROC: 30233N1 Transfusion of Nonautologous Red Blood Cells into Peripheral Vein, Percutaneous Approach (ICD-10-PCS; principal; 2023-10-29 13:42)
DX: K26.4 Chronic or unspecified duodenal ulcer with hemorrhage (principal); R65.10 Systemic inflammatory response syndrome (SIRS) of non-infectious origin without acute organ dysfunction; K76.0 Fatty (change of) liver, not elsewhere classified; D62 Acute posthemorrhagic anemia; K22.10 Ulcer of esophagus without bleeding; E53.8 Deficiency of other specified B group vitamins; E87.6 Hypokalemia; E78.2 Mixed hyperlipidemia; E11.65 Type 2 diabetes mellitus with hyperglycemia; K29.70 Gastritis, unspecified, without bleeding; K44.9 Diaphragmatic hernia without obstruction or gangrene; R16.1 Splenomegaly, not elsewhere classified; Z79.899 Other long term (current) drug therapy; Z83.3 Family history of diabetes mellitus; Z90.49 Acquired absence of other specified parts of digestive tract
CPT/HCPCS: 36415; 71045; 76700; 80053; 80061; 80307; 80320; 81001; 82140; 82270; 82607; 82728; 82746; 83036; 83540; 83550; 83615; 83690; 83735; 83880; 84443; 84484; 85014; 85018; 85025; 85045; 85610; 85730; 86706; 86803; 86850; 86900; 86901; 86920; 87081; 87340; 93005; 96361; 96374; C9113; G0378; J1815; J2001; J2250; J2704